=== PATIENT | female | born 1985 | race Caucasian/White ===

== ENCOUNTER 2020-08-11 11:02 | Emergency (ER) | payer OTHER ==
[~2020-08-11] VITALS: Ht 165.1 cm; Wt 61.4 kg
[2020-08-11] MEDS ORDERED: FLUORESCEIN SODIUM 1 MG STRIP ONE (11:29)
[2020-08-11] MEDS ORDERED: PROPARACAINE HCL 0.5% 15 ML OPHTHALMIC SOLUTION OU ONE (11:30)
[2020-08-11] MEDS ORDERED: HYDROCODONE/ACETAMINOPHEN 5-325 MG TABLET PO ONE (11:30)
[2020-08-11 12:37] VITALS: BP 124/87
== END 2020-08-11 14:00 | disposition home or self-care (01) ==
LOC: EMS 11:08
DX: H57.89 Other specified disorders of eye and adnexa (principal); Z90.49 Acquired absence of other specified parts of digestive tract
CPT/HCPCS: 99283